=== PATIENT | female | born 1945 | race Caucasian/White ===

== ENCOUNTER 2020-02-10 10:14 | Outpatient (CLI) | payer MEDICARE, SELFPAY ==
--- NOTE | 2020-02-10 10:25 | MM_ITS ---
WS: [id number] BILATERAL SCREENING DIGITAL MAMMOGRAM WITH CAD HISTORY: SCREEN COMPARISON: 11/27/2018 and 11/01/2017 Bilateral CC and MLO views submitted. Computer aided detection analyzed. Breast composition: There are scattered areas of fibroglandular density. No suspicious masses, microc alcifications or architectural distortion. Stable dense calcified mass in the anterior LEFT breast wi th a maximum diameter of 2.0 cm is stable. Rodlike calcifications are present bilaterally. MM/[id number] IMPRESSION: BI-RADS: 2-Benign FOLLOW UP: 1 Year Follow-up
== END 2020-02-10 10:15 | disposition home or self-care (01) ==
PROVIDERS: Family Provider Internal Medicine; PCP Internal Medicine; Visit Provider Internal Medicine
DX: Z12.31 Encounter for screening mammogram for malignant neoplasm of breast (principal)
CPT/HCPCS: 77067

== ENCOUNTER 2020-08-23 15:19 | Outpatient (CLI) | payer MEDICARE, SELFPAY ==
--- NOTE | 2020-08-23 15:48 | XR_ITS ---
WS: [id number] Exam: XR DEXA axial skeleton* [id number] Date/Time of Exam: 08/23/2020 3:48 PM Reason For Exam: POSTMENOPAUSAL ESTROGEN DEFICIENCY DEXA BONE DENSITOMETRY ABB The L1-L4 bone mineral density measures 1.756 g/cm2. This corresponds to a T score of 4.8 and Z score of 5.4. Left femoral neck bone mineral density measures 1.203 g/cm2. This corresponds to T score of 1.6 and Z score of 2.5. Right femoral neck bone mineral density measures 1.164 g/cm2. This corresponds to a T score of 1.2 an d Z score of 2.1. Mean femoral neck bone mineral density measures 1.184 g/cm2. This corresponds to a T score of 1.4 and Z score of 2.3. XR/XR DEXA axial skeleton* [id number] IMPRESSION: Bone mineral density lies in the normal range. No osteopenia is observed at th is time. Refer to detailed summary.
== END 2020-08-23 15:20 | disposition home or self-care (01) ==
LOC: RADWPI 15:24
PROVIDERS: PCP Internal Medicine; Visit Provider Nurse Practitioner Family
DX: Z78.0 Asymptomatic menopausal state (principal)
CPT/HCPCS: 77080

== ENCOUNTER 2021-03-28 13:42 | Outpatient (CLI) | payer MEDICARE, SELFPAY ==
--- NOTE | 2021-03-28 13:49 | MM_ITS ---
WS: [id number] BILATERAL SCREENING DIGITAL MAMMOGRAM WITH CAD HISTORY: SCREENING COMPARISON: 02/10/2020, 11/27/2018 and 06/25/2014 Bilateral CC and MLO views submitted. Computer aided detection analyzed. Breast composition: There are scattered areas of fibroglandular density. No suspicious masses, microc alcifications or architectural distortion. Large densely calcified mass near 12:00 of the LEFT breast is stable. There are additional bilateral rodlike calcifications in each breast. No suspicious group ing of calcifications or mass. MM/[id number] IMPRESSION: BI-RADS: 2-Benign FOLLOW UP: 1 Year Follow-up
[2021-03-28 18:43] LABS: NT Pro B Type Natriuretic Pept 359 pg/mL (0-450)
== END 2021-03-28 13:43 | disposition home or self-care (01) ==
LOC: RADSHAW 13:46
PROVIDERS: PCP Internal Medicine; Visit Provider Internal Medicine
DX: Z12.31 Encounter for screening mammogram for malignant neoplasm of breast (principal)
CPT/HCPCS: 77067; 83880

== ENCOUNTER 2022-04-14 11:07 | Outpatient (CLI) | payer MEDICARE, SELFPAY ==
--- NOTE | 2022-04-14 11:23 | MM_ITS ---
WS: [id number] BILATERAL SCREENING DIGITAL BREAST TOMOSYNTHESIS MAMMOGRAM WITH CAD HISTORY: SCREENING COMPARISON: 03/28/2021, 02/10/2020, 11/27/2018 and 11/01/2017 Bilateral CC and MLO views with tomosynthesis and synthetic mammography submitted. Computer aided det ection analyzed. Breast composition: There are scattered areas of fibroglandular density. No suspicious masses, microc alcifications or architectural distortion. Extensive bilateral rodlike calcifications are stable. Hea vily calcified well-circumscribed 18 x 17 mm mass at 12:00 is stable. MM/[place] [id number] IMPRESSION: BI-RADS: 2-Benign FOLLOW UP: 1 Year Follow-up
== END 2022-04-14 11:08 | disposition home or self-care (01) ==
LOC: RAD 11:08
PROVIDERS: PCP Internal Medicine; Visit Provider Internal Medicine
DX: Z12.31 Encounter for screening mammogram for malignant neoplasm of breast (principal)
CPT/HCPCS: 77063; 77067

== ENCOUNTER 2023-07-25 14:11 | Outpatient (CLI) | payer MEDICARE, SELFPAY ==
--- NOTE | 2023-07-25 14:25 | MM_ITS ---
WS: [id number] BILATERAL 3D TOMOSYNTHESIS DIGITAL SCREENING MAMMOGRAPHY WITH CAD CLINICAL INFORMATION: SCREENING HISTORY: Screening mammogram. No current complaints. COMPARISON: None. TECHNIQUE: Bilateral CC and MLO views. FINDINGS: Scattered fibroglandular densities bilaterally. No suspicious focal mass, asymmetry, calcifications, or architectural distortion. No evidence of malignancy. Rodlike secretory calcifications. Densely vanessa cified nodule LEFT breast measuring 1.8 x 1.7 cm unchanged. IMPRESSION: MM/[place] [id number] BI-RADS: 2-Benign FOLLOW UP: 1 Year Follow-up Recommend return to annual screening mammography.
== END 2023-07-25 14:12 | disposition home or self-care (01) ==
PROVIDERS: PCP Internal Medicine; Visit Provider Internal Medicine
DX: Z12.31 Encounter for screening mammogram for malignant neoplasm of breast (principal)
CPT/HCPCS: 77063; 77067

== ENCOUNTER 2023-10-15 09:23 | Emergency (ER) | payer MEDICARE, SELFPAY ==
[2023-10-15 09:33] VITALS: BP 185/96; PULSE 72; RESP 16; TEMP 36.8; O2SAT 93; BMI 39.8
[2023-10-15 10:41] LABS: Basophils # 0.1 10^3/uL (0.0-0.1); Eosinophils # 0.3 10^3/uL (0.0-0.8); Hematocrit 34.1 % (36-47); Lymphocytes # 1.5 10^3/uL (0.8-4.8); Mean Corpuscular HGB Conc 29.9 g/dL (30-55); Mean Corpuscular Hemoglobin 26.2 pg (27-33); Mean Corpuscular Volume 87.4 fl (85-98); Mean Platelet Volume 9.9 fL (7.4-10.4); Monocytes # 0.5 10^3/uL (0.2-0.9); Neutrophils # 5.34 10^3/uL (1.8-7.7); Neutrophils % 69.6 %; Nucleated Red Blood Cells % 0 %; Platelet Count 203 10^3/cmm (157-399); Red Cell Distribution Width 18.6 % (12.1-15.1); White Blood Count 7.68 10^3/uL (3.29-11.43)
[2023-10-15 10:58] LABS: Alanine Aminotransferase 15 U/L (0-33); Albumin Level 3.6 g/dL (3.5-5.2); Alkaline Phosphatase 60 U/L (35-105); Anion Gap 12.3 (5-19); Aspartate Amino Transferase 23 U/L (0-32); Blood Urea Nitrogen 44 mg/dL (8-23); Calcium 9.7 mg/dL (8.5-10.5); Carbon Dioxide 30 mmol/L (22-29); Chloride 102 mmol/L (98-107); Globulin 3.1 g/dL (1.3-4.6); Glucose 75 mg/dL (65-115); Osmolality Calculated 300 mOsm/kg (285-295); Potassium 4.3 mmol/L (3.5-5.1); Sodium 140 mmol/L (136-145); Total Bilirubin 0.2 mg/dL (0.15-1.2); Total Protein 6.7 g/dL (6.6-8.7)
--- NOTE | 2023-10-15 11:11 | USCV_ITS ---
[place], [place] Age: 78 Gender: F : 1945 Exam Date: 10/15/2023 11:54 Ordering Phys: Raciel Padron MD Technologist: Estevan Major Exam Location: [facility] [place]_ Indication: Rt leg pain and swelling PROCEDURES: Venous duplex imaging was performed in only the right lower extremity. The following venous structures were evaluated: common femoral vein, profunda vein, proximal portion of the greater saphenous vein, superficial femoral vein, and the popliteal vein. In addition, the posterior tibial and peroneal trunk were evaluated. FINDINGS: Normal 2-D Doppler and augmentation and compressibility throughout the lower extremity venous structures. Additional imaging through the proximal calf veins also reveals no thrombus. Limited evaluation of the greater saphenous vein is patent with no thrombus. CONCLUSIONS No evidence of right lower extremity DVT. Garth Clay MD (Electronically Signed) Final Date: 15 October 2023 14:32 S
--- NOTE | 2023-10-15 11:36 | ED_ITS ---
HPI - Extremity Problem 2 General: Chief complaint: Extremity Injury, Upper Stated complaint: right leg pains Time Seen by Provider: 10/15/23 09:42 Source: patient and family Mode of arrival: ambulatory Limitations: no limitations History of Present Illness: Patient is a 78-year-old female presents to ED today along with family for evaluation of pain to her right upper thigh. Patient states about 3 days ago she initially began having pain to her right lower back that has since radiated down into the anterior aspect of the right thigh. He does feel like the right knee is swollen. Patient is concerned that she has had DVTs previously. She is taking Eliquis and has not missed any doses of this medication. She denies chest pain. She states she always has some mild shortness of breath that improves with her furosemide use. She states she has not taken this medication today. She has not noticed any calf pain or swelling. She has not noticed any redness to the extremity. Denies numbness, tingling, loss of sensation. She is ambulating normally on extremity. MD Complaint: extremity pain, cold extremity, joint swelling and joint pain Onset (ago): day(s) Pain Consistency: constant Location: right and lower extremity Radiation: none Relieving factors: nothing Exacerbating factors: nothing Associated symptoms: Reports no associated symptoms; Deny chest pain, fever(s) or rash Review of Systems 2 Const: Denies: fever(s), chills, body aches, fatigue or malaise Card: Denies: chest pain Resp: Reports: dyspnea (at baseline); Denies: productive cough, non-productive cough, wheezing, stridor, pain on inspiration, change in phlegm color, hemoptysis or chest congestion GI: Denies: abdominal pain : Denies: flank pain or dysuria Musc: Reports: neck pain, back pain (improved currently), extremity pain (R thigh), joint pain (had some R hip pain but this has subsided) and joint swelling (R knee); Denies: extremity swelling, joint redness, joint warmth, joint stiffness, limited range of motion, muscle cramps or muscle weakness Skin/Breast: Denies: rash Neuro: Denies: headache(s), numbness in extremities, weakness in extremities or sensory changes PFSH ED 2 PFSH: Medical History (Updated 10/15/23 @ 12:37 by VASHTI Adams) Hypertension High blood cholesterol level Hypothyroid History of trigger finger History of renal impairment Diabetic radiculoplexoneuropathy Surgical History History of partial hysterectomy History of vein stripping Family History Other Cancer Diabetes Social History Smoking and tobacco/nicotine status: former use of tobacco/nicotine Household members: spouse Marital status: Physical Exam 2 Const: COMMON NORMALS: no acute distress, patient oriented x3, no limitations, alert and well nourished GENERAL APPEARANCE: cooperative NUTRITIONAL APPEARANCE: obese ORIENTATION/CONSCIOUSNESS: Yes awake, Yes oriented to person, Yes oriented to place and Yes oriented to time Resp: COMMON NORMALS: normal respiratory effort and clear to auscultation bilaterally AUSCULTATION: clear to auscultation bilaterally Cardio: COMMON NORMALS: regular rate and regular rhythm RATE: regular rate RHYTHM: regular rhythm GI: COMMON NORMALS: Normal to inspection, nondistended, normoactive bowel sounds present, Soft to palpation, non-tender, No hepatosplenomegaly present and no masses PALPATION: Yes Soft to palpation and Yes No hepatosplenomegaly present : COMMON NORMALS: Yes no CVA tenderness BLADDER/KIDNEY EXAM: Yes no CVA tenderness Back/Pelvis: COMMON NORMALS: no CVA tenderness, thoracic and lumbar spine normal to inspection, no thoracic nor lumbar tenderness and straight leg raise negative bilaterally PELVIS: Yes sciatic notch tenderness on the right S ACROILIAC JOINTS: Yes SI joint(s) abnormal SI joint details: tender to palpation (R) SACRUM: no tenderness COCCYX: no tenderness Extremity: COMMON NORMALS: normal to inspection, full ROM, capillary refill normal, no joint enlargement, no clubbing, cyanosis or edema, no calf tenderness and no pedal edema GENERAL: Yes normal exam except as noted RIGHT LOWER EXTREMITY: Yes knee joint (mild anterior R knee swelling) Right knee: Yes ROM (normal) and Yes neurovascular exam (normal) Neuro: COMMON NORMALS: patient oriented x3, moves all extremities, no focal motor deficits and no sensory deficits noted SENSORIUM/ORIENTATION: Yes alert, Yes oriented to person, Yes oriented to place and Yes oriented to time Skin: COMMON NORMALS: no rashes or lesions noted GENERAL SKIN EXAM: no rashes or lesions noted Course 2 Vital Signs: Vital signs: Vital Signs Temperature 98.2 F 10/15/23 09:33 Pulse Rate 72 10/15/23 09:33 Respiratory Rate 16 10/15/23 09:33 Blood Pressure 185/96 10/15/23 09:33 Pulse Oximetry 93 10/15/23 09:33 Oxygen Delivery Me thod Room Air 10/15/23 09:33 MDM - Extremity (Nontraumatic) Medical Decision Making Patient here for right thigh pain. She states 3 days ago she was having some right-sided back pain with radiation down into the right hip and now into her right thigh. Back pain has improved but she is still left with the lower extremity discomfort. She was concerned as she has a history of blood clots. Ultrasound today negative for DVT or Moy's cyst. At this time recommend steroids and anti-inflammatories. Recommend follow-up with primary care later this week if symptoms do not seem to be improving. Return ED precautions given. Lab Data 10/15/23 10:34 10/15/23 10:34 Laboratory Results WBC 7.68 10^3/uL (3.29-11.43) 10/15/23 10:34 RBC 3.90 10^6/uL (3.85-5.65) 10/15/23 10:34 Hgb 10.20 g/dL (11.27-16.99) L 10/15/23 10:34 Hct 34.1 % (36-47) L 10/15/23 10:34 MCV 87.4 fl (85-98) 10/15/23 10:34 MCH 26.2 pg (27-33) L 10/15/23 10:34 MCHC 29.9 g/dL (30-55) L 10/15/23 10:34 RDW 18.6 % (12.1-15.1) H 10/15/23 10:34 Plt Count 203 10^3/cmm (157-399) 10/15/23 10:34 MPV 9.9 fL (7.4-10.4) 10/15/23 10:34 Neut % (Auto) 69.6 % 10/15/23 10:34 Lymph % (Auto) 19.0 % 10/15/23 10:34 [place] % (Auto) 6.0 % 10/15/23 10:34 Eos % (Auto) 4.0 % 10/15/23 10:34 Baso % (Auto) 1.0 % 10/15/23 10:34 Neut # (Auto) 5.34 10^3/uL (1.8-7.7) 10/15/23 10:34 Lymph # (Auto) 1.5 10^3/uL (0.8-4.8) 10/15/23 10:34 [place] # (Auto) 0.5 10^3/uL (0.2-0.9) 10/15/23 10:34 Eos # (Auto) 0.3 10^3/uL (0.0-0.8) 10/15/23 10:34 Baso # (Auto) 0.1 10^3/uL (0.0-0.1) 10/15/23 10:34 Nucleated RBC % (auto) 0 % 10/15/23 10:34 Nucleated RBCs # 0.0 /100WBC 10/15/23 10:34 Sodium 140 mmol/L (136-145) 10/15/23 10:34 Potassium 4.3 mmol/L (3.5-5.1) 10/15/23 10:34 Chloride 102 mmol/L (98-107) 10/15/23 10:34 Carbon Dioxide 30 mmol/L (22-29) H 10/15/23 10:34 Anion Gap 12.3 (5-19) 10/15/23 10:34 BUN 44 mg/dL (8-23) H 10/15/23 10:34 Creatinine 1.3 mg/dL (0.5-0.9) H 10/15/23 10:34 GFR Calculation Not Reportable 10/15/23 10:34 Glucose 75 mg/dL (65-115) 10/15/23 10:34 Calculated Osmolality 300 mOsm/kg (285-295) H 10/15/23 10:34 Calcium 9.7 mg/dL (8.5-10.5) 10/15/23 10:34 Total Bilirubin 0.2 mg/dL (0.15-1.2) 10/15/23 10:34 AST 23 U/L (0-32) 10/15/23 10:34 ALT 15 U/L (0-33) 10/15/23 10:34 Alkaline Phosphatase 60 U/L (35-105) 10/15/23 10:34 Total Protein 6.7 g/dL (6.6-8.7) 10/15/23 10:34 Albumin 3.6 g/dL (3.5-5.2) 10/15/23 10:34 Globulin 3.1 g/dL (1.3-4.6) 10/15/23 10:34 All radiology interpretation(s) finalized by discharge Discharge Plan Discharge Patient Disposition: Home Clinical Impression: Acute right lumbar radiculopathy Condition: Stable Prescriptions: New methylprednisolone [Medrol (He)] 4 mg tablets,dose pack See Rx Instructions .ROUTE .COMPLEX Qty: 21 0RF Rx Instructions: orally per package directions No Action insulin lispro [Humalog Pipe KwikPen U-100] 100 unit/mL insulin pen, half- unit 10.5 unit SUBCUT BID magnesium 250 mg tablet 250 mg PO .twice daily potassium gluconate 595 mg (99 mg) tablet 595 mg PO DAILY gabapentin 300 mg capsule 600 mg PO BID Eliquis 5 mg tablet 5 mg PO BID furosemide 40 mg tablet 40 mg PO DAILY chlorthalidone 25 mg tablet PO cyclobenzaprine 10 mg tablet 10 mg PO TID fenofibrate 54 mg tablet PO hydrocodone-acetaminophen 5-325 mg tablet PO isosorbide mononitrate 30 mg tablet extended release 24 hr PO losartan 100 mg tablet PO pravastatin 10 mg tablet PO Toujeo Max U-300 SoloStar 300 unit/mL (3 mL) insulin pen 10 unit SUBCUT DAILY Trulicity 1.5 mg/0.5 mL pen injector SUBCUT levothyroxine 137 mcg capsule 175 mcg PO DAILY ketoconazole 2 % shampoo 1 applic topical .2 x weekly Qty: 120 3RF Rx Instructions: Lather into scalp 2 times weekly. Allow to sit on scalp for 5 minutes before rinsing. Discharge Orders: Discharge ED (Routine); Ordered 10/15/23 Ordered By: Eva Clark Referrals: Sandro Cid DO [Primary Care Provider] - Coding Level of Care Code ED Pattern Developer for Chg Pepito
--- NOTE | 2023-10-15 12:03 | PC.NURSE ---
just returned from ultrasound
[2023-10-15 12:56] VITALS: BP 159/80; PULSE 64; RESP 16; O2SAT 95
== END 2023-10-15 12:58 | disposition home or self-care (01) ==
PROVIDERS: Family Medicine; Emergency Provider Physician Assistant; PCP Internal Medicine
DX: M54.16 Radiculopathy, lumbar region (principal); Z79.85 Long-term (current) use of injectable non-insulin antidiabetic drugs; Z79.4 Long term (current) use of insulin; Z79.01 Long term (current) use of anticoagulants; I10 Essential (primary) hypertension; E11.40 Type 2 diabetes mellitus with diabetic neuropathy, unspecified; Z87.891 Personal history of nicotine dependence
CPT/HCPCS: 36415; 80053; 85025; 93971; 99284

== ENCOUNTER 2024-01-23 10:29 | Outpatient (RCR) | payer MEDICARE, SELFPAY | END 2024-02-05 23:59 | disposition home or self-care (01) | LOC: CR 10:29 | PROVIDERS: PCP Internal Medicine; Referring Provider Student in an Organized Health Care Education/Training Program; Visit Provider Student in an Organized Health Care Education/Training Program | DX: Z95.1 Presence of aortocoronary bypass graft (principal); Z95.2 Presence of prosthetic heart valve | CPT/HCPCS: 93798 ==

== ENCOUNTER 2024-02-07 08:28 | Outpatient (RCR) | payer MEDICARE, SELFPAY | END 2024-03-07 23:59 | disposition home or self-care (01) | LOC: CR 08:28 | PROVIDERS: PCP Internal Medicine; Referring Provider Student in an Organized Health Care Education/Training Program; Visit Provider Student in an Organized Health Care Education/Training Program | DX: Z95.1 Presence of aortocoronary bypass graft (principal); Z95.2 Presence of prosthetic heart valve | CPT/HCPCS: 93798 ==

== ENCOUNTER 2024-03-08 08:40 | Outpatient (RCR) | payer MEDICARE, SELFPAY | END 2024-04-06 23:59 | disposition home or self-care (01) | LOC: CR 08:40 | PROVIDERS: PCP Internal Medicine; Referring Provider Student in an Organized Health Care Education/Training Program; Visit Provider Student in an Organized Health Care Education/Training Program | DX: Z95.1 Presence of aortocoronary bypass graft (principal); Z95.2 Presence of prosthetic heart valve | CPT/HCPCS: 93798 ==

== ENCOUNTER 2024-04-08 14:46 | Outpatient (RCR) | payer MEDICARE, SELFPAY | END 2024-05-07 23:59 | disposition home or self-care (01) | LOC: CR 14:46 | PROVIDERS: PCP Internal Medicine; Referring Provider Student in an Organized Health Care Education/Training Program; Visit Provider Student in an Organized Health Care Education/Training Program | DX: Z95.1 Presence of aortocoronary bypass graft (principal); Z95.2 Presence of prosthetic heart valve | CPT/HCPCS: 93798 ==

== ENCOUNTER 2024-05-08 15:58 | Outpatient (RCR) | payer MEDICARE, SELFPAY | END 2024-06-07 18:00 | disposition home or self-care (01) | LOC: CR 15:58 | PROVIDERS: PCP Internal Medicine; Referring Provider Student in an Organized Health Care Education/Training Program; Visit Provider Student in an Organized Health Care Education/Training Program | DX: Z95.1 Presence of aortocoronary bypass graft (principal) | CPT/HCPCS: 93798 ==

== ENCOUNTER 2024-05-30 08:45 | Outpatient (CLI) | payer MEDICARE, SELFPAY ==
--- NOTE | 2024-05-30 08:50 | CT_ITS ---
WS: [id number] CT chest wo con [id number] HISTORY: CHEST WALL MASS TECHNIQUE: Axial imaging performed through the thorax. Coronal and sagittal reformats are submitted. All CT scans at [facility] use at least one of these dose optimization techniques: automated exposure control; mA and/or kV adjustment per patient size (includes targeted exams where dose is mat ched to clinical indication); or iterative reconstruction. CONTRAST: None DLP: 715.56 mGy.cm COMPARISON: None available. Lungs and central airway: Numerous bilateral pulmonary nodules are identified within each lobe. The l argest nodule anterior RIGHT upper lobe 8.5 mm. No mass. Mild dependent changes and atelectasis at th e bases. Pleura: Normal. No pleural effusion. Heart and pericardium: Heart is markedly enlarged. Extensive cahto coronary artery calcifications. L EFT subclavian pacer/defibrillator. Mediastinum and derrick: Mediastinum and hilum evaluation is limited without IV contrast. There are maria luisa ral lymph nodes present but do not appear enlarged. Vessels: Moderate atherosclerosis aorta. Mild dilated pulmonary artery. Chest wall and lower neck: Median sternotomy has been performed. Palpable mass along the midline of t he chest wall closely associated with the manubrium measures 3.7 x 2.5 cm and extends over a length o f 3.5 cm. Hounsfield units are low but not simple fluid. No additional chest wall mass. RIGHT inferio r thyroid enlargement extends substernal. Substernal nodule measures 4.6 x 3.0 cm. Upper abdomen: Hepatic steatosis. Prior cholecystectomy. Mild perinephric stranding around the visual ized upper poles. Splenic artery calcification. Osseous structures: Thoracolumbar scoliosis. Moderate increase in thoracic kyphosis. CT/CT chest wo con [id number] IMPRESSION: 1. Well-circumscribed low-attenuation mass along the midline of the chest abut s the manubrium. Mass measures 3.7 x 2.5 x 3.5 cm. Limited evaluation without I V contrast. This may be cystic mass related to the surgery such as postoperativ e seroma. Masses also very closely associated with varicosities in the chest wa ll. Recommend additional evaluation. Consider follow-up chest CT with IV contra st and or ultrasound evaluation of the chest wall mass. Vascular mass/pseudoane urysm or neoplasm needs to be excluded. 2. Numerous pulmonary nodules are identified. The largest is 8.5 mm in the ant erior RIGHT upper lobe. Recommend follow-up chest CT in 3 months. IV contrast w ould be of benefit to also further evaluate the hilum and mediastinum for adeno tasha. 3. Moderate cardiomegaly and status post CABG. 4. Prior cholecystectomy and hepatic steatosis. 5. RIGHT substernal mass is probably a thyroid goiter. This should be also fu rther evaluated post IV contrast to exclude vascular mass.
== END 2024-05-30 08:46 | disposition home or self-care (01) ==
LOC: RAD 08:45
PROVIDERS: PCP Internal Medicine; Visit Provider Internal Medicine
DX: R22.2 Localized swelling, mass and lump, trunk (principal); I51.7 Cardiomegaly; Z95.1 Presence of aortocoronary bypass graft; Z90.49 Acquired absence of other specified parts of digestive tract; K76.0 Fatty (change of) liver, not elsewhere classified; E04.9 Nontoxic goiter, unspecified; D73.89 Other diseases of spleen; M41.34 Thoracogenic scoliosis, thoracic region
CPT/HCPCS: 71250

== ENCOUNTER → 2024-08-10 12:04 | Outpatient (BNVA) | payer MEDICARE, SELFPAY | PROVIDERS: PCP Internal Medicine; Visit Provider Nurse Practitioner | DX: R10.9 Unspecified abdominal pain (principal) | CPT/HCPCS: 81000; 87086 ==

== ENCOUNTER 2024-08-25 09:00 | Outpatient (CLI) | payer MEDICARE, SELFPAY ==
--- NOTE | 2024-08-25 | MM_ITS ---
WS: [id number] VIEWS: MLO and CC views both breasts. 3D digital tomosynthesis is also included in this exam. Comparison made with prior exam of 11/01/2017, 11/27/2018, 02/10/2020, 03/28/2021, 04/14/2022, 07/25/2023.. Findings: There are scattered areas of fibroglandular density. No mass, suspicious calcification or architectural distortion. Scattered benign-appearing calcificati ons bilaterally. MM/MM scr BI tomosynthesis [id number] Impression: BI-RADS: 2 - Benign. FOLLOW-UP: 1 Year Follow-up This mammogram was also analyzed by the Computer Aided Detection System R2 Imag e Logging Engineer.
== END 2024-08-25 09:01 | disposition home or self-care (01) ==
LOC: RAD 09:01
PROVIDERS: PCP Internal Medicine; Visit Provider Internal Medicine
DX: Z12.31 Encounter for screening mammogram for malignant neoplasm of breast (principal); R92.323 Mammographic fibroglandular density, bilateral breasts
CPT/HCPCS: 77063; 77067

== ENCOUNTER → 2025-10-05 13:08 | Outpatient (BNVA) | payer MEDICARE, SELFPAY | PROVIDERS: PCP Internal Medicine; Visit Provider Thoracic Surgery (Cardiothoracic Vascular Surgery) | DX: E11.52 Type 2 diabetes mellitus with diabetic peripheral angiopathy with gangrene (principal); E11.622 Type 2 diabetes mellitus with other skin ulcer; L97.811 Non-pressure chronic ulcer of other part of right lower leg limited to breakdown of skin; I87.331 Chronic venous hypertension (idiopathic) with ulcer and inflammation of right lower extremity | CPT/HCPCS: 29581; 99203; A6253 ==

== ENCOUNTER → 2025-10-07 13:07 | Outpatient (BNVA) | payer MEDICARE, SELFPAY | PROVIDERS: PCP Internal Medicine; Visit Provider Thoracic Surgery (Cardiothoracic Vascular Surgery) | DX: I83.018 Varicose veins of right lower extremity with ulcer other part of lower leg (principal) | CPT/HCPCS: 29581 ==